=== PATIENT | male | born 2000 | race Caucasian/White ===

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

== ENCOUNTER 2018-04-20 18:48 | Emergency (ER) | payer SELFPAY ==
[2013-02-23 07:03] VITALS: BMI 20.3
== END 2018-04-20 19:04 | disposition left against medical advice (07) ==
LOC: D.ER 18:48
DX: F19.10 Other psychoactive substance abuse, uncomplicated (principal)

== ENCOUNTER 2019-06-24 12:27 | Inpatient (IN) | payer MEDICAID ==
[2019-06-24] VITALS (13 sets, daily range): BP systolic 105–162; BP diastolic 72–95; Ht 175.3 cm; Wt 73.1 kg
[~2019-06-24] VITALS: Ht 175.3 cm; Wt 73.1 kg
[2019-06-24 13:11] LABS: HEMATOCRIT 40.2 % (42.0-54.0); HEMOGLOBIN 13.7 g/dL (13.5-17.5); MCH 31.5 pg (26.0-34.0); MCHC 34.1 g/dL (31.0-37.0); MCV 92.4 fL (80.0-100.0); MEAN PLATELET VOLUME 10.6 fL (7.4-10.4); PLATELET COUNT 193 10x3/uL (130-400); RBC 4.35 10x6/uL (4.20-6.10); RDW 12.7 % (11.5-14.5); WBC 21.9 10x3/uL (4.8-10.8)
[2019-06-24 13:16] LABS: APTT 22.5 SECONDS (22.8-39.4); INR 1.14 (0.85-1.17); PROTIME 14.5 SECONDS (11.6-15.0)
[2019-06-24 13:35] LABS: LYMPHOCYTES 22 % (15-50); MONOCYTES 1 % (2-11); NEUTROPHILS 77 % (40-80); PLATELET ESTIMATE NORMAL
[2019-06-24 13:40] LABS: ALBUMIN 3.9 g/dL (3.4-5.0); ALKALINE PHOSPHATASE 48 U/L (30-120); ALT (SGPT) 22 U/L (10-68); BILIRUBIN - TOTAL 0.56 mg/dL (0.2-1.3); CALC OSMOLALITY 285 mosm/kg (275-300); CALCIUM 8.8 mg/dL (8.5-10.1); CARBON DIOXIDE 25.1 mmol/L (21.0-32.0); CHLORIDE - SERUM 101 mmol/L (98-107); CKMB 2.4 U/L (0.0-3.6); CREATINE KINASE 148 UL (21-232); CREATININE - SERUM 1.5 mg/dL (0.6-1.3); GLUCOSE 273 mg/dL (74-106); PROTEIN - SERUM 6.7 g/dL (6.4-8.2); SODIUM 138 mmol/L (136-145); UREA NITROGEN 12 mg/dL (7-18); eGFR NON AFRICAN AMERICAN 63 mL/min (90-120)
[2019-06-24 13:44] LABS: POTASSIUM - SERUM 2.9 mmol/L (3.5-5.1); TROPONIN-I < 0.017 ng/mL (0.000-0.060)
[2019-06-24 14:08] LABS: BILIRUBIN NEGATIVE (NEGATIVE); GLUCOSE 1000 mg/dL (NEGATIVE); KETONE NEGATIVE (NEGATIVE); NITRITE NEGATIVE (NEGATIVE); SPECIFIC GRAVITY 1.015 (1.005-1.020); UROBILINOGEN NORMAL (NORMAL)
[2019-06-24 14:17] LABS: UDS - AMPHET POSITIVE QUAL (NEGATIVE); UDS - BARB NEGATIVE QUAL (NEGATIVE); UDS - BENZO NEGATIVE QUAL (NEGATIVE); UDS - COCAINE NEGATIVE QUAL (NEGATIVE); UDS - OPIATE NEGATIVE QUAL (NEGATIVE); UDS - PCP NEGATIVE QUAL (NEGATIVE); UDS - THC POSITIVE QUAL (NEGATIVE)
--- NOTE | 2019-06-24 14:30 | NUR ---
PT PULLED OUT IV AN STATED HE WAS LEAVING TO DR. QUINTANILLA.
[2019-06-24 15:09] LABS: MONO NEGATIVE (NEGATIVE)
--- NOTE | 2019-06-24 18:26 | NUR ---
PT RECEIVED TO ROOM 2301 FROM RECOVERY. PT HAD SPLENECTOMY. PRIMAPORE DRESSING TO ABD WITH DRAINAGE MARKED. PT IS RESTING COMFORTABLY WITH VSS. HOOKED UP TO MONITORS. IVS TO LEFT AC AND RIGHT AC. SORES TO DASHAWN ARMS NOTED. PT ON ROOM AIR. WILL CONTINUE TO MONITOR.
--- NOTE | 2019-06-24 19:15 | NUR ---
PT SLEEPING, AROUSES EASILY, VOICES NEEDS, LUNGS CLEAR, BILAT AC PIV'S INTACT WITH NS @ 100 CC/HR INFUSING IN LEFT AC, ABDOMINAL INCISION WITH DRSG INTACT, NO C/O @ THIS TIME
--- NOTE | 2019-06-24 19:19 | NUR ---
[facility] PHONE NUMBER- [phone]
[2019-06-24 19:46] LABS: CALC OSMOLALITY 278 mosm/kg (275-300); CALCIUM 7.8 mg/dL (8.5-10.1); CARBON DIOXIDE 25.7 mmol/L (21.0-32.0); CHLORIDE - SERUM 106 mmol/L (98-107); GLUCOSE 109 mg/dL (74-106); SODIUM 139 mmol/L (136-145); UREA NITROGEN 12 mg/dL (7-18); eGFR NON AFRICAN AMERICAN > 90 mL/min (90-120)
--- NOTE | 2019-06-24 21:00 | NUR ---
PT REMAINS ASLEEP, AROUSES EASILY AND RETURNS TO SLEEP QUICKLY, VITALS STABLE, WILL CONT TO MONITOR
--- NOTE | 2019-06-24 23:15 | NUR ---
RESTING QUIETLY WITH EYES CLOSED, AROUSES EASILY, GIVEN JUICE PER PT REQUEST, TOLERATED WELL, NO C/O
[2019-06-25] VITALS (13 sets, daily range): BP systolic 130–164; BP diastolic 83–117
--- NOTE | 2019-06-25 01:00 | NUR ---
PT SLEEPING WITH NO DISTRESS NOTED, VITALS STABLE
--- NOTE | 2019-06-25 03:15 | NUR ---
PT AWAKE, REQUESTS PO FLUIDS, GIVEN JUICE, URINAL IN REACH, NO C/O PAIN
[2019-06-25 03:40] LABS: BASOPHILS 0.1 % (0-2); EOSINOPHILS 0.3 % (0-7); HEMATOCRIT 30.6 % (42.0-54.0); HEMOGLOBIN 10.4 g/dL (13.5-17.5); IMMATURE GRANULOCYTES 0.3 % (0-5); LYMPHOCYTES 11.5 % (15-50); MCH 31.1 pg (26.0-34.0); MCV 91.6 fL (80.0-100.0); MEAN PLATELET VOLUME 10.2 fL (7.4-10.4); MONOCYTES 10.5 % (2-11); NEUTROPHILS 77.3 % (40-80); PLATELET COUNT 160 10x3/uL (130-400); RBC 3.34 10x6/uL (4.20-6.10); RDW 12.8 % (11.5-14.5); WBC 22.6 10x3/uL (4.8-10.8)
[2019-06-25 03:50] LABS: CALC OSMOLALITY 273 mosm/kg (275-300); CALCIUM 7.8 mg/dL (8.5-10.1); CARBON DIOXIDE 23.9 mmol/L (21.0-32.0); CHLORIDE - SERUM 106 mmol/L (98-107); CREATININE - SERUM 0.9 mg/dL (0.6-1.3); GLUCOSE 113 mg/dL (74-106); POTASSIUM - SERUM 3.8 mmol/L (3.5-5.1); SODIUM 137 mmol/L (136-145); UREA NITROGEN 11 mg/dL (7-18); eGFR NON AFRICAN AMERICAN > 90 mL/min (90-120)
--- NOTE | 2019-06-25 08:04 | NUR ---
ASSISTING PT TO CHAIR THIS AM. PT SITTING ON SIDE OF BED THEN REFUSING TO GET TO CHAIR. CL MEAL TRAY PROVIDED. PT C/O PAIN TO ABD AND RATES 6 ON SCALE OF 1 TO 10. NORCO GIVEN.
[2019-06-25 10:08] LABS: EBV VIRAL CAPSID AB IGG 28.7 U/mL (0.0-17.9); EBV VIRAL CAPSID AB IGM <36.0 U/mL (0.0-35.9)
--- NOTE | 2019-06-25 10:52 | NUR ---
PT ARRIVES TO ROOM VIA WHEELCHAIR. PT IS SLEEPY BUT AROUSABLE WITH VERBAL STIMULATION. PT REPORTS PRESENCE OF PAIN DESCRIBED 10/10 TO ABDOMEN AND ACHING PT REPORTS "ITS WORSE FROM MOVING AROUND". PT IS AAO X 4. RESPIRATIONS ARE EVEN AND UNLABORED. PT DENIES PRESENCE OF N/V. INCENTIVE SPIROMETER GIVEN AND EDUCATION PROVIDED. PT VERBALIZES UNDERSTANDING. BED IS IN THE LOWEST POSITION. CALL LIGHT AND BEDSIDE TABLE AREIWITHN REACH. SIDE RAILS X 2. PT DENIES FURTHER NEEDS. WILL CONT TO MONITOR.
--- NOTE | 2019-06-25 11:08 | NUR ---
MIDLINE ABDOMINAL DRESSING NOTED WITH SCANT AMOUNT OF DRAINAGE NOTED TO DRESSING. BS ACTIVE X 4. FALL PRECAUTIONS IN PLACE. BED IS IN THE LOWEST POSITION. CALL LIGHT AND BEDSIDE TABLE ARE WITIHN REACH. SIDE RAILS X 2. PT DENIES FURTHER NEEDS. WILL CONT TO MONITOR.
--- NOTE | 2019-06-25 11:58 | NUR ---
DR AGRCIA NOTIFIED OF PT HTN. NO FURTHER ORDERS RECD AT THIS TIME.
--- NOTE | 2019-06-25 13:15 | OP ---
PATIENT NAME: SHERRI ARANGO MEDICAL RECORD: [id number] :[birth year] LOCATION:D.[facility] [id number] ADMISSION DATE:06/24/19 SURGEON: CHIKI GARCIA MD DATE OF OPERATION: 06/24/2019 PREOPERATIVE DIAGNOSES: 1. Spontaneous splenic rupture. 2. Methamphetamine abuse. 3. THC abuse. POSTOPERATIVE DIAGNOSES: 1. Spontaneous splenic rupture. 2. Methamphetamine abuse. 3. THC abuse. PROCEDURE: Splenectomy. SURGEON: Chiki Garcia MD REPORT OF PROCEDURE: The patient's abdomen was prepped and draped in sterile fashion. A midline incision was performed in the upper abdomen and electrocautery was used to dissect through the subcutaneous tissues. We entered the abdomen through the linea alba and I bluntly entered the abdominal cavity. Once inside, there was a large return of bloody fluid. We irrigated and suctioned this out as best as possible and then I reached up into the patient's left upper quadrant and could feel the spleen. There appeared to be a large rupture on its posterior aspect and lateral aspect. I was able to free up some adhesions of the spleen to the posterior and lateral abdominal wall using blunt dissection and then rotated the spleen anteriorly until it was eviscerated through the wound. The splenic vessels were taken down using a 45 white load Endo-CARMEN stapler. At this point, the spleen was extracted from the abdominal cavity. I then packed the abdomen in the left upper quadrant with lap sponges and performed an irrigation of the abdominal cavity to get rid of any old blood products that were present throughout the abdomen and pelvis. Once we had a good clear return of fluid and then we slowly took out the packs in the left upper quadrant and inspected the staple lines and any of the tissues of the left upper quadrant. There were a couple areas where there was some oozing tissue present and this was oversewn with 3-0 silk ties in a [id number] fashion. This splenic vessels were oversewn with a 3-0 silk stitch just proximal to the staple lines. At this point, we did not see any evidence of any active bleeding. I irrigated out the abdomen one last time. Again, there was no sign of any bleeding noted. The remainder of the abdominal cavity looked to be normal with no signs of any masses or lesions. The liver itself appeared to be normal. In order to facilitate visualizing the left upper quadrant, I took down the triangular ligament on the left side of the liver. We left everything back in its anatomic position. The midline fascia was closed with running #1 loop PDS times 2 and the skin was closed with dee. COMPLICATIONS: None. CONDITION: Stable. ANESTHESIA: General endotracheal. BLOOD LOSS: 200 mL. OPERATIVE REPORT [id number] SHERRI ARANGO TRANSINT:[id number] Voice Confirmation ID: [id number] DOCUMENT ID: [id number] CHIKI GARCIA MD at 1315 CC: [id number] DICTATION DATE: 06/24/19 1745 COMPLETION ENGINEER: 06/24/19 1800 ADM IN [facility] [address] [id number]
[2019-06-26 04:00] VITALS: BP 119/82
[2019-06-26 07:00] LABS: BASOPHILS 0.1 % (0-2); HEMATOCRIT 28.6 % (42.0-54.0); HEMOGLOBIN 9.4 g/dL (13.5-17.5); IMMATURE GRANULOCYTES 0.4 % (0-5); LYMPHOCYTES 16.1 % (15-50); MCH 30.4 pg (26.0-34.0); MCHC 32.9 g/dL (31.0-37.0); MCV 92.6 fL (80.0-100.0); MEAN PLATELET VOLUME 9.9 fL (7.4-10.4); MONOCYTES 12.6 % (2-11); NEUTROPHILS 69.8 % (40-80); RBC 3.09 10x6/uL (4.20-6.10)
[2019-06-26 07:08] LABS: PLATELET COUNT 219 10x3/uL (130-400); WBC 16.6 10x3/uL (4.8-10.8)
[2019-06-26 07:17] LABS: CALC OSMOLALITY 256 mosm/kg (275-300); CALCIUM 8.1 mg/dL (8.5-10.1); CARBON DIOXIDE 28.9 mmol/L (21.0-32.0); CHLORIDE - SERUM 99 mmol/L (98-107); GLUCOSE 98 mg/dL (74-106); POTASSIUM - SERUM 3.3 mmol/L (3.5-5.1); SODIUM 129 mmol/L (136-145); eGFR NON AFRICAN AMERICAN > 90 mL/min (90-120)
[2019-06-26 07:18] LABS: UREA NITROGEN 6 mg/dL (7-18)
--- NOTE | 2019-06-26 09:04 | NUR ---
RESTING IN BED, EYES CLOSED, NO DISTRESS NOTED, APPETITE POOR, CONT TO MONITOR PAIN AND LABS
[2019-06-26] MEDS ORDERED: MIRALAX17 GM PO (11:26)
[2019-06-26] MEDS ORDERED: HYDROCODON-ACE1 EAC7 PO (11:26)
--- NOTE | 2019-06-27 09:45 | MORECARE ---
CASE MANAGEMENT DISCHARGE SUMMARY PATIENT: SHERRI ARANGO UNIT: [id number] ADM DATE: 06/24/19 AGE: 19 : [birth year] SEX: M ROOM/BED: D.2204 AUTHOR: LESA AGUSTIN PHYSICIAN: REFERRING PHYSICIAN: MANDI GARCIA MD DATE OF SERVICE: 06/27/19 Discharge Plan Patient Name: SHERRI ARANGO Facility: [facility]:[place] : 2000 Planned Disposition: Home Anticipated Discharge Date: Discharge Date: 06/26/2019 Expected LOS: Initial Reviewer: [email or web address] Initial Review Date: 06/24/2019 Generated: 06/27/19 10:45 am Comments DCP- Discharge Planning Updated by [email or web address]: Debra Kim on 06/25/19 6:[address] [employer] tried to contact patient and he hung up on them. CM will see patient and explain that they will see if he qualifies for Medicaid. CM will continue to follow and assist as needed with discharge planning / needs. Patient Name: SHERRI ARANGO Page [id number] at 0945 All edits/amendments must be made on the electronic document DICTATION DATE: 06/27/19944 INTERLOCKER: TALITA 06/27/19944 RPT#: [id number] DC DATE:06/26/19 STATUS: DIS IN [facility] [address] [place] [address] END OF REPORT
--- NOTE | 2019-06-27 09:58 | MORECARE ---
CASE MANAGEMENT DISCHARGE SUMMARY PATIENT: SHERRI ARANGO UNIT: [id number] ADM DATE: 06/24/19 AGE: 19 : [birth year] SEX: M ROOM/BED: D.2204 AUTHOR: LESA AGUSTIN PHYSICIAN: REFERRING PHYSICIAN: MANDI GARCIA MD DATE OF SERVICE: 06/27/19 Discharge Plan Patient Name: SHERRI ARANGO Facility: [facility] : 2000 Planned Disposition: Home Anticipated Discharge Date: Discharge Date: 06/26/2019 Expected LOS: Initial Reviewer: [email or web address] Initial Review Date: 06/24/2019 Generated: 06/27/19 10:58 am Comments DCP- Discharge Planning Updated by [email or web address]: Debra Kim on 06/25/19 6:[address] [employer] tried to contact patient and he hung up on them. CM will see patient and explain that they will see if he qualifies for Medicaid. CM will continue to follow and assist as needed with discharge planning / needs. DCPIA - Discharge Planning Initial Assessment Updated by [email or web address]: Debra Kim on 06/27/19 9:54 am * Is the patient Alert and Oriented? Yes * How many steps to enter\exit or inside your home? * PCP [facility] * Pharmacy [facility] * Preadmission Environment Home with Family * ADLs Independent * List name and contact numbers for known caregivers / representatives who currently or will assist patient after discharge: DENNIS PRECIADO [phone] * Verbal permission to speak to the caregivers and representatives has been obtained from the patient. Yes * Community resources currently utilized None * Additional services required to return to the preadmission environment? No * Can the patient safely return to the preadmission environment? Yes * Has this patient been hospitalized within the prior 30 days at any hospital? No Last DP export: 06/27/19 8:45 am Patient Name: SHERRI ARANGO Page [phone] at 0958 All edits/amendments must be made on the electronic document DICTATION DATE: 06/27/19957 DOUGH MAKER: TALITA 06/27/19957 RPT#: [id number] DC DATE:06/26/19 STATUS: DIS IN [facility] [address] [place] [address] END OF REPORT
--- NOTE | 2019-06-27 10:06 | MORECARE ---
CASE MANAGEMENT DISCHARGE SUMMARY PATIENT: SHERRI ARANGO UNIT: [id number] ADM DATE: 06/24/19 AGE: 19 : [birth year] SEX: M ROOM/BED: D.2204 AUTHOR: VAMSIDOC PHYSICIAN: REFERRING PHYSICIAN: MANDI GARCIA MD DATE OF SERVICE: 06/27/19 Discharge Plan Patient Name: SHERRI ARANGO Facility: [facility]:[place] : 2000 Planned Disposition: Home Anticipated Discharge Date: Discharge Date: 06/26/2019 Expected LOS: Initial Reviewer: [email or web address] Initial Review Date: 06/24/2019 Generated: 06/27/19 11:05 am Comments DCP- Discharge Planning Updated by [email or web address]: Debra Kim on 06/27/19 8:[address] LATE ENTRY 06/26/19 Patient Name: SHERRI ARANGO Admission Status: ER Accout number: [id number] Admission Date: 06-24-2019 : 2000 Admission Diagnosis:OTHER INJURY OF SPLEEN, INITIAL ENCOUNTER Attending: MANDI GARCIA Current LOS: 2 Anticipated DC Date: Planned Disposition: Home Primary Insurance: MEDICAID [place] Discharge Planning Comments: CM met with patient at bedside after explaining CM role and obtaining verbal consent. Patient lives at home with his parents where he is independent with his care and plans to return there upon discharge. Patient feels this would be a safe discharge. CM discussed availability / needs of home health and medical equipment. [employer] was able to talk to patient and he is Medicaid pending. Patient denies any discharge needs at this time. Patient states he will have his family drive him home upon discharge. CM will continue to follow and assist as needed with discharge planning / needs. Public Address Technician: Debra Kim DCP- Discharge Planning Updated by [email or web address]: Debra Kim on 06/25/19 6:[address] [employer] tried to contact patient and he hung up on them. CM will see patient and explain that they will see if he qualifies for Medicaid. CM will continue to follow and assist as needed with discharge planning / needs. DCPIA - Discharge Planning Initial Assessment Updated by [email or web address]: Debra Kim on 06/27/19 9:54 am * Is the patient Alert and Oriented? Yes * How many steps to enter\exit or inside your home? * PCP [facility] * Pharmacy [facility] * Preadmission Environment Home with Family * ADLs Independent * List name and contact numbers for known caregivers / representatives who currently or will assist patient after discharge: DENNIS PRECIADO - [phone] * Verbal permission to speak to the caregivers and representatives has been obtained from the patient. Yes * Community resources currently utilized None * Additional services required to return to the preadmission environment? No * Can the patient safely return to the preadmission environment? Yes * Has this patient been hospitalized within the prior 30 days at any hospital? No Last DP export: 06/27/19 8:58 am Patient Name: SHERRI ARANGO Page [phone] at 1006 All edits/amendments must be made on the electronic document DICTATION DATE: 06/27/19 1005 ACCOUNTS RECEIVABLE PROCESSOR: TALITA 06/27/19 1005 RPT#: [id number] DC DATE:06/26/19 STATUS: DIS IN [facility] [address] [place] [address] END OF REPORT
== END 2019-06-26 13:15 | disposition home or self-care (01) | DRG 799 ==
LOC: D.ER 12:27 → D.ICU 15:03 → D.MS 15:03 → D.ICU 16:54 → D.MS 06-25 10:12
PROVIDERS: Family Medicine; ADMIT Surgery; ATTEND Surgery
PROC: 07TP0ZZ Resection of Spleen, Open Approach (ICD-10-PCS; principal; 2019-06-24 16:00)
DX: D73.5 Infarction of spleen (principal); K66.1 Hemoperitoneum; F15.10 Other stimulant abuse, uncomplicated; R11.2 Nausea with vomiting, unspecified